=== PATIENT | male | born 1950 | race Caucasian/White ===

== ENCOUNTER 2018-10-12 09:36 | Outpatient (CLI) | payer MEDICARE, OTHER ==
--- NOTE | 2018-10-12 10:07 | RAD ---
TWO VIEWS RIGHT TIBIA/FIBULA: Comparison: None. History: Pain in the right tibia. FINDINGS: Two views of the right tibia/fibula shows no evidence of acute fracture or dislocation. No degenerati ve changes are seen. No soft tissue swelling is present. Vascular calcifications are present. IMPRESSION: No evidence of acute osseous abnormality. POS: [facility]
== END 2018-10-12 09:37 | disposition home or self-care (01) ==
LOC: RAD 09:36
PROVIDERS: ATTEND Specialist
DX: M79.661 Pain in right lower leg (principal)